=== PATIENT | female | born 2005 | race Caucasian/White ===

== ENCOUNTER 2024-12-31 10:30 | Emergency (ER) | payer BC ==
[~2024-12-31] VITALS: Ht 152.4 cm; Wt 49.9 kg
[2024-12-31] MEDS ORDERED: ONDANSETRON HCL 2 MG/ML VIAL IV STA (11:38)
[2024-12-31] MEDS ORDERED: 0.9 % SODIUM CHLORIDE 1,000 ML IV STA (11:38)
[2024-12-31] MEDS ORDERED: FAMOTIDINE/PF 20 MG in 0.9 % SODIUM CHLORIDE 8 ML IV PUSH STA (11:38)
[2024-12-31 12:45] LABS: PH,URINE 5.5 (5.0-8.0); URINE APPEARANCE Cloudy; URINE BILIRRUBIN Negative (NEGATIVE); URINE BLOOD Negative; URINE COLOR Dark Yellow; URINE GLUCOSE Negative (NEGATIVE); URINE LEUKOCYTE Negative; URINE NITRATE Negative; URINE PROTEIN Trace (NEGATIVE); URINE UROBILINOGEN 0.2 E.U./dl
[2024-12-31 12:52] LABS: HEMATOCRIT 42.2 % (36.0-45.00); HEMOGLOBIN 14.8 g/dL (12.0-15.00); MEAN CORPUSCULAR HEMOGLOBIN 31.2 pg (27.00-32.0); PLATELET COUNT 236 K/uL (150-450); RED BLOOD COUNT 4.74 M/uL (4.00-6.00); RED CELL DISTRIBUTION WIDTH 12.9 % (11.5-14.5)
[2024-12-31 12:58] LABS: URINE BACTERIA 5751.3 uL (0.0-1933); URINE EPITHELIAL CELLS 159.8 uL (0.0-38.8); URINE RBC 10.6 uL (0.0-20.8); URINE WBC 195.6 uL (0.0-23.2)
[2024-12-31 13:21] LABS: CALCIUM 8.6 mg/dL (8.5-10.1); CREATININE SERUM 0.56 mg/dL (0.55-1.02); GFR 136.65; POTASSIUM 4.09 mEq/L (3.5-5.1)
[2024-12-31 13:24] LABS: URINE CAST 0.88 uL (0.0-1.40); URINE KETONE 80 (NEGATIVE)
[2024-12-31 13:25] LABS: URINE YEAST MANY /hpf
[2024-12-31 13:26] LABS: URINE CRYSTALS MODERATE /HPF
== END 2024-12-31 15:36 | disposition home or self-care (01) ==
LOC: ER 10:33
PROVIDERS: Emergency Medicine
DX: K52.89 Other specified noninfective gastroenteritis and colitis (principal); R11.10 Vomiting, unspecified